=== PATIENT | female | born 1960 | race Caucasian/White ===

== ENCOUNTER → 2018-05-02 | Outpatient (CLI) | payer OTHER ==
[~2018-05-02] MED LIST: HYDR25T PO; LISINOPRIL40 MG PO; NORVASC5 MG PO; VITAMIN D31000 UNI1 PO; WELLBUTRIN XL150 MG PO; ZANAFLEX2 M1 PO
== END | disposition home or self-care (01) ==
LOC: RAD 15:22
DX: I51.7 Cardiomegaly (principal)

== ENCOUNTER 2024-03-09 09:20 | Emergency (ER) | payer SELFPAY ==
[~2024-03-09] VITALS: Ht 149.8 cm; Wt 93.4 kg
[2024-03-09] MEDS ORDERED: ULTRA LIDO60 GM T (09:57)
== END 2024-03-09 10:02 | disposition home or self-care (01) ==
LOC: ED 09:20
DX: B02.9 Zoster without complications (principal); Z88.5 Allergy status to narcotic agent; Z88.7 Allergy status to serum and vaccine; Z88.6 Allergy status to analgesic agent; Z90.49 Acquired absence of other specified parts of digestive tract; Z98.890 Other specified postprocedural states